=== PATIENT | male | born 1960 | race Caucasian/White ===

== ENCOUNTER 2018-11-30 09:37 | Outpatient (CLI) | payer BC ==
[2018-11-30] MEDS ORDERED: IOVERSOL 320 100 ML VIAL IVP ONE (09:46)
[2018-11-30] MEDS ORDERED: IOVERSOL 320 50 ML VIAL ONE (09:46)
[2018-11-30] MEDS ORDERED: IOVERSOL 320 50 ML VIAL PO ONE (10:18)
--- NOTE | 2018-11-30 12:16 | CT Report ---
Reason: LEFT UPPER QUADRANT PAIN Procedure Date: 11/30/2018 Accession Number: [id number] / [id number] Procedure: CT - Abdomen W/ CPT Code: FULL RESULT: EXAM: CT ABDOMEN EXAM DATE: 11/30/2018 10:34 AM. CLINICAL HISTORY: Left upper quadrant pain. COMPARISON: Abdomen/pelvis w/o 06/05/2015 3:49 PM. TECHNIQUE: Routine helical CT imaging was performed through the abdomen. IV contrast: OPTI 320 90 mL Enteric contrast: No. Reconstruction: Coronal and sagittal. In accordance with CT protocol optimization, one or more of the following dose reduction techniques were utilized for this exam: automated exposure control, adjustment of mA and/or KV based on patient size, or use of iterative reconstructive technique. FINDINGS: Lung Bases: Unremarkable. Liver: Normal. No masses. Gallbladder/Bile Ducts: Unremarkable. Spleen: Mild splenomegaly, 14 cm maximal diameter. Pancreas: Normal. Adrenal Glands: Normal. Kidneys: Normal. No masses or hydronephrosis. Peritoneal Cavity/Bowel: Descending colonic diverticulosis without diverticulitis. No free fluid, free air or adenopathy. No masses or acute inflammatory process. Vasculature: No aneurysms or other significant abnormality. Bones: No significant abnormality. Other: None. IMPRESSION: Mild splenomegaly. RAD[facility]
[2018-12-01] MEDS ORDERED: IOVERSOL 320 100 ML VIAL IVP ONE (10:42)
== END 2018-11-30 09:38 | disposition home or self-care (01) ==
LOC: DI 09:37
PROVIDERS: ATTEND Nurse Practitioner Family
DX: R16.1 Splenomegaly, not elsewhere classified (principal); R10.12 Left upper quadrant pain
CPT/HCPCS: 74160; Q9967

== ENCOUNTER 2019-12-22 16:14 | Outpatient (CLI) | payer BC ==
--- NOTE | 2019-12-23 13:24 | XRAY Report ---
Reason: PAINFUL L CALCANEUS Procedure Date: 12/22/2019 Accession Number: [id number] / [id number] Procedure: XR - Calcaneus LT CPT Code: Final Report FULL RESULT: EXAM: LEFT CALCANEUS RADIOGRAPHY EXAM DATE: 12/22/2019 04:33 PM. CLINICAL HISTORY: PAINFUL L CALCANEUS. COMPARISON: None. TECHNIQUE: 2 views. FINDINGS: Bones: Small heel spur.. No fractures or bone lesions. Joints: Normal. No subluxations. Soft Tissues: Normal. No soft tissue swelling. IMPRESSION: 1. Small heel spur. 2. No fracture or bony lesion. RADIA
== END 2019-12-22 16:15 | disposition home or self-care (01) ==
LOC: DI 16:14
PROVIDERS: ATTEND Podiatrist
DX: M77.32 Calcaneal spur, left foot (principal)

== ENCOUNTER 2020-09-14 14:53 | Outpatient (CLI) | payer BC | END 2020-09-14 14:54 | disposition home or self-care (01) | LOC: LAB 14:53 | PROVIDERS: ATTEND Nurse Practitioner Family | DX: L03.115 Cellulitis of right lower limb (principal) | CPT/HCPCS: 87040 ==